=== PATIENT | male | born 1985 | race African-American/Black ===

== ENCOUNTER 2017-09-25 04:13 | Emergency (ER) | payer OTHER ==
[~2017-09-25] VITALS: Ht 170.2 cm; Wt 51.5 kg
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
[2017-09-25 05:10] VITALS: PULSE 84; RESP 16; TEMP 97.9; O2SAT 99
== END 2017-09-25 05:55 ==
LOC: PHED 04:13
DX: S60.512A Abrasion of left hand, initial encounter (principal); S60.511A Abrasion of right hand, initial encounter; S80.212A Abrasion, left knee, initial encounter; S80.211A Abrasion, right knee, initial encounter; S50.312A Abrasion of left elbow, initial encounter; S80.01XA Contusion of right knee, initial encounter; K40.90 Unilateral inguinal hernia, without obstruction or gangrene, not specified as recurrent; D64.9 Anemia, unspecified; G89.29 Other chronic pain; Y35.93XA Legal intervention, means unspecified, suspect injured, initial encounter
CPT/HCPCS: 99282